=== PATIENT | male | born 1965 | race Caucasian/White ===

== ENCOUNTER 2016-08-23 20:21 | Emergency (ER) | payer MEDICAID, MEDICARE ==
[2016-08-23 21:10] VITALS: BP 111/74
--- NOTE | 2016-08-23 22:05 | UC ---
Hand/Wrist HPI - HPI Summary HPI Summary: CUTTING ONIONS AROUND 7:30PM TONIGHT. CUT OFF THE END OF LEFT 4TH FINGER. WASHED IT AND STUCK IT BACK ON AND COVERED WITH BANDAID. UP TO DATE TETANUS. - History Of Current Complaint Chief Complaint: UCLaceration Stated Complaint: FINGER LACERATION Time Seen by Provider: 08/23/16 21:41 Hx Obtained From: Patient, Family/Registered Medical Assistant - Onset/Duration: Sudden Onset, Lasting Hours, Still Present Pain Intensity: 5 Pain Scale Used: 0-10 Numeric Character Of Pain: Dull Aggravating Factor(s): Other - TOUCH Alleviating: Rest, Compression Related History: Dominant Hand Right - Allergies/Home Medications Allergies/Adverse Reactions: Allergies Allergy/AdvReac Type Severity Reaction Status Date / Time Erythromycin Allergy Unknown Unknown Verified 08/23/16 21:11 Reaction Details Meropenem Allergy Itching Verified 08/23/16 21:11 Morphine Allergy Nausea Verified 08/23/16 21:11 CI Pigment Blue 63 AdvReac See Comment Verified 08/23/16 21:11 [From Cymbalta] Duloxetine [From Cymbalta] AdvReac See Comment Verified 08/23/16 21:11 Meloxicam [From Mobic] AdvReac Nausea Verified 08/23/16 21:11 Naproxen AdvReac Nausea Verified 08/23/16 21:11 pine nuts Allergy Severe Vomiting Uncoded 08/23/16 21:11 Home Medications: Home Medications buPROPion TAB* [Wellbutrin TAB*] 100 mg PO DAILY 08/23/16 [History Confirmed 07/07] PMH/Surg Hx/FS Hx/Imm Hx Endocrine History Of: Denies: Diabetes, Thyroid Disease Cardiovascular History Of: Denies: Cardiac Disorders, Hypertension, Pacemaker/ICD, Congestive Heart Failure, Deep Vein Thrombosis Respiratory History Of: Reports: Bronchitis Denies: COPD, Asthma, Pneumonia, Pulmonary Embolism GI/ History Of: Reports: Gastroesophageal Reflux Denies: Ulcer, Renal Disease Neurological History Of: Denies: CVA, Dementia, Seizures Psychological History Of: Reports: Depression Cancer History Of: Denies: Lung Cancer Other History Of: Negative For: Anticoagulant Therapy - Surgical History Surgical History: Yes Surgery Procedure, Year, and Place: port placement ; spleenectomy 2012trigger finger release 2005, port removal February 2013, stem cell transplant September 2012 - Family History Known Family History: Positive: Hypertension - Social History Alcohol Use: Occasionally Substance Use Type: None Smoking Status (MU): Never Smoked Tobacco - Immunization History Most Recent Tetanus Shot: pt states he is up to date having receiving one in last 10 years Review of Systems Constitutional: Negative Skin: Other - DISTAL AVULSION LEFT 4TH FINGER Respiratory: Negative Cardiovascular: Negative Gastrointestinal: Negative All Other Systems Reviewed And Are Negative: Yes Physical Exam Triage Information Reviewed: Yes Appearance: Well-Appearing, No Pain Distress, Well-Nourished Vital Signs: Initial Vital Signs Temp 98.0 F 08/23/16 21:02 Pulse 53 08/23/16 21:02 Resp 18 08/23/16 21:02 BP 111/74 08/23/16 21:02 Pulse Ox 99 08/23/16 21:02 Vital Signs Reviewed: Yes Eyes: Positive: Conjunctiva Clear ENT: Positive: Hearing grossly normal Neck: Positive: Supple Respiratory: Positive: No respiratory distress, No accessory muscle use Cardiovascular: Positive: Pulses Normal Abdomen Description: Positive: Soft Musculoskeletal: Positive: ROM Intact, No Edema Neurological: Positive: Alert Psychological: Positive: Age Appropriate Behavior Skin: Positive: Other - DISTAL TIP OF LEFT 4TH FINGER AVULSED. AVULSED TISSUE MEASURING 1CM DIAMETER. Diagnostics - Radiology LEFT 4TH FINGER XRAY Xray Interpretation: No Acute Changes Radiology Interpretation Completed By: Radiologist Hand/Wrist Course/Dx - Differential Dx/Diagnosis Provider Diagnoses: SKIN AVULSION LEFT 4TH FINGER Discharge - Discharge Plan Condition: Stable Disposition: HOME Prescriptions: Acetaminop/Codeine 30 MG TAB* [Tylenol/Codeine 30 MG TAB*] 1 - 2 tab PO Q6H PRN #20 tab MDD 8 PRN Reason: Pain Patient Education Materials: Skin Avulsion (ED), Skin Adhesive Care (ED) Referrals: Isiah Cabrales MD [Primary Care Provider] - If Needed Additional Instructions: THE PIECE OF AVULSED TISSUE IS LIKELY TO BECOME NECROTIC AND FALL OFF. KEEP IT CLEAN AND DRY. CHANGE THE BANDAGE DAILY AND IF IT BECOMES SOILED OR WET. DO NOT SCRUB IT. SEEK FOLLOW-UP IF YOU DEVELOP SPREADING REDNESS OF THE SKIN, PURULENT DRAINAGE, FEVER, INCREASED PAIN OR ANY OTHER CONCERNING SYMPTOMS.
--- NOTE | 2016-08-23 22:19 | RAD ---
INDICATION: Laceration evaluate bony injury. TECHNIQUE: 3 views of the left ring finger were obtained. FINDINGS: The bones are normal alignment. No fracture is seen. Joint spaces appear maintained. IMPRESSION: NO EVIDENCE FOR FRACTURE.
[2016-08-23] MEDS ORDERED: Acetaminop/Codeine 30 MG TAB* 1 TAB (300 MG/30 MG) PO ONE (22:32)
== END 2016-08-23 22:49 | disposition home or self-care (01) ==
LOC: UCEAST 20:21
DX: S61.215A Laceration without foreign body of left ring finger without damage to nail, initial encounter (principal); W45.8XXA Other foreign body or object entering through skin, initial encounter; Y93.G1 Activity, food preparation and clean up; Y92.9 Unspecified place or not applicable; Z88.6 Allergy status to analgesic agent; Z88.1 Allergy status to other antibiotic agents; Z88.5 Allergy status to narcotic agent; K21.9 Gastro-esophageal reflux disease without esophagitis; F32.9 Major depressive disorder, single episode, unspecified; Z90.81 Acquired absence of spleen
CPT/HCPCS: 12001; 73140; 99212; A9270-GY; G0463